=== PATIENT | male | born 1995 | race Caucasian/White ===

== ENCOUNTER → 2016-04-18 | Outpatient (REF) ==
[~2016-04-18] MED LIST: BACTROBAN NASA0.9 GM NS; CEPHALEXIN500 M1 PO; PHENERGAN 25 TA25 MG PO
== END ==
LOC: WSOH 08:12
DX: Z02.89 Encounter for other administrative examinations (principal)

== ENCOUNTER 2016-09-04 23:15 | Emergency (ER) | payer BC ==
[~2016-09-04] VITALS: Ht 182.9 cm; Wt 96.0 kg
[~2016-09-04 23:15] MED LIST changes: -CEPHALEXIN500 M1 PO
[2016-09-04 23:23] VITALS: BP 133/71; TEMP 98
[2016-09-04] MEDS ORDERED: CEPHALEXIN500 M1 PO (23:51)
[2016-09-04 23:57] VITALS: PULSE 88
== END 2016-09-04 23:58 | disposition home or self-care (01) ==
LOC: COL.ER 23:15
DX: S91.312A Laceration without foreign body, left foot, initial encounter (principal); Z23 Encounter for immunization; W26.8XXA Contact with other sharp object(s), not elsewhere classified, initial encounter; Y92.828 Other wilderness area as the place of occurrence of the external cause